=== PATIENT | male | born 1945 | race Caucasian/White ===

== ENCOUNTER 2017-10-14 20:36 | Inpatient (IN) | payer MEDICARE, OTHER ==
[~2017-10-14] VITALS: Ht 180.3 cm; Wt 76.7 kg
[2017-10-14 20:48] VITALS: BP 134/83
[2017-10-14] MEDS: SENNA 187 MG TABLET PO SCH (21:00)
[2017-10-14] MEDS ORDERED: DOCUSATE SODIUM 283 MG/5 ML MINI-ENEMA PR PRN (21:00)
[2017-10-14] MEDS ORDERED: OxyCODONE HCL 5 MG IR TABLET PO PRN ×2 (21:00)
[2017-10-14] MEDS ORDERED: ACETAMINOPHEN 325 MG TABLET PO PRN (21:00)
[2017-10-14] MEDS ORDERED: DOCUSATE SODIUM 100 MG CAPSULE PO SCH (21:00)
[2017-10-15 00:59] LABS: APPEARANCE,URINE CLEAR (CLEAR); BILIRUBIN,URINE NEGATIVE (NEGATIVE); GLUCOSE, URINE (UA) NEGATIVE (NEGATIVE); KETONES,URINE NEGATIVE (NEGATIVE); LEUKOCYTE ESTERASE ,URINE NEGATIVE (NEGATIVE); NITRATE,URINE NEGATIVE (NEGATIVE); OCCULT BLOOD,URINE LARGE (NEGATIVE); PROTEIN,URINE NEGATIVE (NEGATIVE); UROBILINOGEN,URINE 0.2 mg/dL (<=1.0)
[2017-10-15 01:13] LABS: RBC,URINE 51-100 /HPF (0-2); WBC,URINE None Seen /HPF (0-5)
[2017-10-15 01:14] LABS: BACTERIA,URINE Rare /HPF (None Seen); SQUAMOUS EPITHELIAL CELL,UR Rare /LPF (None Seen)
[2017-10-15 04:00] VITALS: BP 140/73
[2017-10-15 06:27] LABS: BASOPHILS % (AUTO) 1.2 % (0.0-2.0); EOSINOPHILS % (AUTO) 3.8 % (1.0-6.0); HEMATOCRIT 25.2 % (36-46); HEMOGLOBIN 8.7 g/dL (12.0-16.0); LYMPHOCYTES # (AUTO) 0.6 K/uL (1.0-4.8); MEAN CORPUSCULAR HEMOGLOBIN 36.4 pg (26.0-34.0); MEAN CORPUSCULAR HGB CONC 34.6 G/dL (31.0-37.0); MEAN CORPUSCULAR VOLUME 105 fL (80-100); MONOCYTES # (AUTO) 0.5 K/uL (0.1-1.0); MONOCYTES % (AUTO) 8.2 % (2.0-9.0); NEUTROPHILS # (AUTO) 4.5 K/uL (1.8-7.7); NEUTROPHILS % (AUTO) 75.8 % (40.0-70.0); PLATELET COUNT (AUTO) 290 K/uL (150-450); RED BLOOD CELL COUNT(AUTO) 2.39 MIL/uL (4.00-5.20); RED CELL DISTRIBUTION WIDTH 16.8 % (11.5-14.5)
[2017-10-15 06:45] LABS: ALANINE AMINOTRANSFERASE 22 U/L (12-78); ALBUMIN 1.7 g/dL (3.4-5.0); ALKALINE PHOSPHATASE 256 U/L (46-116); ANION GAP 9 mmol/L (8-16); ASPARTATE AMINOTRANSFERASE 31 U/L (15-37); BILIRUBIN,TOTAL 0.6 mg/dL (0.1-1.0); CALCIUM, TOTAL 7.7 mg/dL (8.8-10.5); CARBON DIOXIDE 23 mmol/L (22-29); CHLORIDE 106 mmol/L (98-107); CREATININE 0.83 mg/dL (0.60-1.30); GLOMERULAR FILTR. RATE CALC > 60 mL/min (>60); GLUCOSE,RANDOM 80 mg/dL (70-110); SODIUM SERUM 138 mmol/L (136-145); TOTAL PROTEIN, SERUM 5.3 g/dL (6.4-8.2); UREA NITROGEN, BLOOD 10 mg/dL (7-18)
[2017-10-15 07:46] VITALS: BP 145/84
[2017-10-15] MEDS: FOLIC ACID 0.4 MG TABLET PO SCH (09:13)
[2017-10-15] MEDS: ENOXAPARIN SODIUM 40 MG/0.4 ML PF SYRINGE SQ SCH (09:13)
[2017-10-15] MEDS: DOCUSATE SODIUM 250 MG CAPSULE PO SCH ×2 (09:13→20:39)
[2017-10-15] MEDS: TAMSULOSIN HCL 0.4 MG CAPSULE PO SCH (09:14)
[2017-10-15] MEDS: ASCORBIC ACID 500 MG TABLET PO SCH (09:14)
[2017-10-15] MEDS: 0.9% SODIUM CHLORIDE 10 ML SYRINGE IVP SCH ×2 (09:15→17:02)
[2017-10-15 16:09] VITALS: BP 121/74
[2017-10-15] MEDS: FERROUS SULFATE 325 MG EC TABLET PO SCH (17:02)
[2017-10-15] MEDS: GABAPENTIN 300 MG CAPSULE PO SCH ×2 (17:02→20:39)
[2017-10-15] MEDS: SENNA 187 MG TABLET PO SCH (20:39)
[2017-10-15] MEDS ORDERED: SODIUM CHLORIDE 0.9% 250 ML IV ONE (21:39)
[2017-10-15] MEDS: ERTAPENEM SODIUM 1 GM in SODIUM CHLORIDE 0.9% 50 ML IV SCH (21:52)
[2017-10-16] MEDS: 0.9% SODIUM CHLORIDE 10 ML SYRINGE IVP SCH ×4 (00:14→23:20)
[2017-10-16 00:37] VITALS: BP 146/74
[2017-10-16 07:35] VITALS: BP 138/80
[2017-10-16] MEDS: FERROUS SULFATE 325 MG EC TABLET PO SCH ×2 (08:55→16:10)
[2017-10-16] MEDS: DOCUSATE SODIUM 250 MG CAPSULE PO SCH ×2 (08:55→21:47)
[2017-10-16] MEDS: ENOXAPARIN SODIUM 40 MG/0.4 ML PF SYRINGE SQ SCH (08:56)
[2017-10-16] MEDS: FOLIC ACID 0.4 MG TABLET PO SCH (08:56)
[2017-10-16] MEDS: GABAPENTIN 300 MG CAPSULE PO SCH ×3 (08:56→21:47)
[2017-10-16] MEDS: ASCORBIC ACID 500 MG TABLET PO SCH (08:56)
[2017-10-16] MEDS: TAMSULOSIN HCL 0.4 MG CAPSULE PO SCH (08:56)
[2017-10-16 15:49] VITALS: BP 119/70
[2017-10-16] MEDS ORDERED: SODIUM CHLORIDE 0.9% 0 ML ONE (21:32)
[2017-10-16] MEDS ORDERED: SODIUM CHLORIDE 0.9% 250 ML IV ONE (21:43)
[2017-10-16] MEDS: SENNA 187 MG TABLET PO SCH (21:47)
[2017-10-16] MEDS: ERTAPENEM SODIUM 1 GM in SODIUM CHLORIDE 0.9% 50 ML IV SCH (21:47)
[2017-10-17] VITALS: BP 133/69
[2017-10-17 09:13] VITALS: BP 132/72
[2017-10-17] MEDS: FERROUS SULFATE 325 MG EC TABLET PO SCH ×2 (09:31→17:19)
[2017-10-17] MEDS: ENOXAPARIN SODIUM 40 MG/0.4 ML PF SYRINGE SQ SCH (09:31)
[2017-10-17] MEDS: MULTIVITAMINS WITH MINERALS, THERAPEUTIC TABLET PO SCH (09:31)
[2017-10-17] MEDS: FOLIC ACID 0.4 MG TABLET PO SCH (09:31)
[2017-10-17] MEDS: DOCUSATE SODIUM 250 MG CAPSULE PO SCH ×2 (09:31→21:16)
[2017-10-17] MEDS: TAMSULOSIN HCL 0.4 MG CAPSULE PO SCH (09:31)
[2017-10-17] MEDS: GABAPENTIN 300 MG CAPSULE PO SCH ×3 (09:32→21:16)
[2017-10-17] MEDS: ASCORBIC ACID 500 MG TABLET PO SCH (09:32)
[2017-10-17] MEDS: 0.9% SODIUM CHLORIDE 10 ML SYRINGE IVP SCH ×3 (14:20→22:44)
[2017-10-17 15:40] VITALS: BP 131/73
[2017-10-17] MEDS: ERTAPENEM SODIUM 1 GM in SODIUM CHLORIDE 0.9% 50 ML IV SCH (21:16)
[2017-10-17] MEDS: SENNA 187 MG TABLET PO SCH (21:16)
[2017-10-18] VITALS: BP 120/63
[2017-10-18 07:15] VITALS: BP 157/104
[2017-10-18] MEDS: DOCUSATE SODIUM 250 MG CAPSULE PO SCH ×2 (08:07→21:25)
[2017-10-18] MEDS: FOLIC ACID 0.4 MG TABLET PO SCH (08:07)
[2017-10-18] MEDS: GABAPENTIN 300 MG CAPSULE PO SCH ×3 (08:07→21:25)
[2017-10-18] MEDS: ENOXAPARIN SODIUM 40 MG/0.4 ML PF SYRINGE SQ SCH (08:07)
[2017-10-18] MEDS: TAMSULOSIN HCL 0.4 MG CAPSULE PO SCH (08:07)
[2017-10-18] MEDS: ASCORBIC ACID 500 MG TABLET PO SCH (08:08)
[2017-10-18] MEDS: MULTIVITAMINS WITH MINERALS, THERAPEUTIC TABLET PO SCH (08:08)
[2017-10-18] MEDS: 0.9% SODIUM CHLORIDE 10 ML SYRINGE IVP SCH ×3 (08:08→23:52)
[2017-10-18] MEDS: FERROUS SULFATE 325 MG EC TABLET PO SCH ×2 (08:08→17:34)
[2017-10-18] MEDS: CHOLECALCIFEROL (VIT D3) 1,000 UNITS TABLET PO SCH (09:57)
[2017-10-18 15:40] VITALS: BP 108/64
[2017-10-18] MEDS ORDERED: SODIUM CHLORIDE 0.9% 250 ML IV ONE (19:55)
[2017-10-18] MEDS: ERTAPENEM SODIUM 1 GM in SODIUM CHLORIDE 0.9% 50 ML IV SCH (21:25)
[2017-10-18] MEDS: SENNA 187 MG TABLET PO SCH (21:25)
[2017-10-19 00:14] VITALS: BP 124/67
[2017-10-19 07:53] VITALS: BP 122/76
[2017-10-19 07:58] LABS: BASOPHILS % (AUTO) 1.4 % (0.0-2.0); EOSINOPHILS % (AUTO) 5.5 % (1.0-6.0); HEMATOCRIT 25.2 % (41-53); HEMOGLOBIN 8.5 g/dL (13.5-17.5); LYMPHOCYTES # (AUTO) 0.6 K/uL (1.0-4.8); LYMPHOCYTES % (AUTO) 12.4 % (22.0-44.0); MEAN CORPUSCULAR HEMOGLOBIN 35.9 pg (26.0-34.0); MEAN CORPUSCULAR HGB CONC 33.8 G/dL (31.0-37.0); MEAN CORPUSCULAR VOLUME 106 fL (80-100); MONOCYTES # (AUTO) 0.5 K/uL (0.1-1.0); MONOCYTES % (AUTO) 10.4 % (2.0-9.0); NEUTROPHILS # (AUTO) 3.6 K/uL (1.8-7.7); NEUTROPHILS % (AUTO) 70.3 % (40.0-70.0); PLATELET COUNT (AUTO) 368 K/uL (150-450); RED BLOOD CELL COUNT(AUTO) 2.38 MIL/uL (4.50-5.90); RED CELL DISTRIBUTION WIDTH 16.5 % (11.5-14.5)
[2017-10-19] MEDS: MULTIVITAMINS WITH MINERALS, THERAPEUTIC TABLET PO SCH (08:51)
[2017-10-19] MEDS: GABAPENTIN 300 MG CAPSULE PO SCH ×3 (08:52→21:28)
[2017-10-19] MEDS: DOCUSATE SODIUM 250 MG CAPSULE PO SCH ×2 (08:52→21:28)
[2017-10-19] MEDS: ASCORBIC ACID 500 MG TABLET PO SCH (08:52)
[2017-10-19] MEDS: FERROUS SULFATE 325 MG EC TABLET PO SCH ×2 (08:52→16:57)
[2017-10-19] MEDS: FOLIC ACID 0.4 MG TABLET PO SCH (08:52)
[2017-10-19] MEDS: TAMSULOSIN HCL 0.4 MG CAPSULE PO SCH ×2 (08:53→21:28)
[2017-10-19] MEDS: CHOLECALCIFEROL (VIT D3) 1,000 UNITS TABLET PO SCH (08:53)
[2017-10-19] MEDS: ENOXAPARIN SODIUM 40 MG/0.4 ML PF SYRINGE SQ SCH (08:53)
[2017-10-19] MEDS: 0.9% SODIUM CHLORIDE 10 ML SYRINGE IVP SCH ×3 (08:54→23:45)
[2017-10-19 12:44] LABS: APPEARANCE,URINE CLEAR (CLEAR); BILIRUBIN,URINE NEGATIVE (NEGATIVE); GLUCOSE, URINE (UA) NEGATIVE (NEGATIVE); KETONES,URINE NEGATIVE (NEGATIVE); LEUKOCYTE ESTERASE ,URINE NEGATIVE (NEGATIVE); NITRATE,URINE NEGATIVE (NEGATIVE); OCCULT BLOOD,URINE NEGATIVE (NEGATIVE); PROTEIN,URINE NEGATIVE (NEGATIVE); UROBILINOGEN,URINE 0.2 mg/dL (<=1.0)
[2017-10-19 12:59] LABS: BACTERIA,URINE None Seen /HPF (None Seen); RBC,URINE None Seen /HPF (0-2); WBC,URINE None Seen /HPF (0-5)
[2017-10-19 17:58] VITALS: BP 132/76
[2017-10-19] MEDS: SENNA 187 MG TABLET PO SCH (21:28)
[2017-10-19] MEDS: ERTAPENEM SODIUM 1 GM in SODIUM CHLORIDE 0.9% 50 ML IV SCH (21:29)
[2017-10-19 23:38] VITALS: BP 136/79
[2017-10-20 07:34] VITALS: BP 133/74
[2017-10-20] MEDS: ENOXAPARIN SODIUM 40 MG/0.4 ML PF SYRINGE SQ SCH (09:58)
[2017-10-20] MEDS: FOLIC ACID 0.4 MG TABLET PO SCH (09:59)
[2017-10-20] MEDS: DOCUSATE SODIUM 250 MG CAPSULE PO SCH ×2 (09:59→20:02)
[2017-10-20] MEDS: ASCORBIC ACID 500 MG TABLET PO SCH (09:59)
[2017-10-20] MEDS: MULTIVITAMINS WITH MINERALS, THERAPEUTIC TABLET PO SCH (09:59)
[2017-10-20] MEDS: TAMSULOSIN HCL 0.4 MG CAPSULE PO SCH ×2 (09:59→20:02)
[2017-10-20] MEDS: FERROUS SULFATE 325 MG EC TABLET PO SCH (09:59)
[2017-10-20] MEDS: 0.9% SODIUM CHLORIDE 10 ML SYRINGE IVP SCH ×3 (10:00→23:36)
[2017-10-20] MEDS: GABAPENTIN 300 MG CAPSULE PO SCH ×3 (10:00→20:02)
[2017-10-20] MEDS: CHOLECALCIFEROL (VIT D3) 1,000 UNITS TABLET PO SCH ×2 (10:04→13:29)
[2017-10-20 10:22] LABS: FOLATE SERUM 12.6 ng/mL (5.4-)
[2017-10-20 15:56] VITALS: BP 122/74
[2017-10-20] MEDS: SENNA 187 MG TABLET PO SCH (20:02)
[2017-10-20] MEDS: ERTAPENEM SODIUM 1 GM in SODIUM CHLORIDE 0.9% 50 ML IV SCH (21:51)
[2017-10-21] VITALS: BP 142/73
[2017-10-21 07:58] VITALS: BP 91/52
[2017-10-21] MEDS: 0.9% SODIUM CHLORIDE 10 ML SYRINGE IVP SCH ×2 (08:55→16:00)
[2017-10-21] MEDS: ASCORBIC ACID 500 MG TABLET PO SCH (08:55)
[2017-10-21] MEDS: FOLIC ACID 0.4 MG TABLET PO SCH (08:55)
[2017-10-21] MEDS: ENOXAPARIN SODIUM 40 MG/0.4 ML PF SYRINGE SQ SCH (08:55)
[2017-10-21] MEDS: FERROUS SULFATE 325 MG EC TABLET PO SCH (08:56)
[2017-10-21] MEDS: GABAPENTIN 300 MG CAPSULE PO SCH ×3 (08:56→21:18)
[2017-10-21] MEDS: DOCUSATE SODIUM 250 MG CAPSULE PO SCH ×2 (08:56→21:18)
[2017-10-21] MEDS: CHOLECALCIFEROL (VIT D3) 1,000 UNITS TABLET PO SCH (08:56)
[2017-10-21] MEDS: TAMSULOSIN HCL 0.4 MG CAPSULE PO SCH ×2 (08:57→21:18)
[2017-10-21] MEDS: MULTIVITAMINS WITH MINERALS, THERAPEUTIC TABLET PO SCH (08:57)
[2017-10-21 09:05] VITALS: BP 99/52
[2017-10-21 10:05] VITALS: BP 91/60
[2017-10-21 10:40] VITALS: BP 114/71
[2017-10-21 15:30] VITALS: BP 112/72
[2017-10-21] MEDS: SENNA 187 MG TABLET PO SCH (21:18)
[2017-10-21] MEDS ORDERED: ASCO500 PO (23:00)
[2017-10-22 05:46] VITALS: BP 126/75
[2017-10-22] MEDS: 0.9% SODIUM CHLORIDE 10 ML SYRINGE IVP SCH ×4 (05:50→23:28)
[2017-10-22 08:23] VITALS: BP 116/68
[2017-10-22] MEDS: ASCORBIC ACID 500 MG TABLET PO SCH (08:53)
[2017-10-22] MEDS: CHOLECALCIFEROL (VIT D3) 1,000 UNITS TABLET PO SCH (08:53)
[2017-10-22] MEDS: GABAPENTIN 300 MG CAPSULE PO SCH ×3 (08:53→21:05)
[2017-10-22] MEDS: TAMSULOSIN HCL 0.4 MG CAPSULE PO SCH ×2 (08:54→21:06)
[2017-10-22] MEDS: FERROUS SULFATE 325 MG EC TABLET PO SCH (08:54)
[2017-10-22] MEDS: MULTIVITAMINS WITH MINERALS, THERAPEUTIC TABLET PO SCH (08:54)
[2017-10-22] MEDS: ENOXAPARIN SODIUM 40 MG/0.4 ML PF SYRINGE SQ SCH (08:54)
[2017-10-22] MEDS: DOCUSATE SODIUM 250 MG CAPSULE PO SCH ×2 (08:54→21:06)
[2017-10-22] MEDS: FOLIC ACID 0.4 MG TABLET PO SCH (08:55)
[2017-10-22 15:23] VITALS: BP 129/75
[2017-10-22] MEDS: SENNA 187 MG TABLET PO SCH (21:06)
[2017-10-23 00:37] VITALS: BP 113/61
[2017-10-23 07:30] VITALS: BP 92/56
[2017-10-23 07:35] VITALS: BP 77/44
[2017-10-23 08:00] VITALS: BP 120/71
[2017-10-23] MEDS: GABAPENTIN 300 MG CAPSULE PO SCH ×3 (08:27→20:19)
[2017-10-23] MEDS: TAMSULOSIN HCL 0.4 MG CAPSULE PO SCH ×2 (08:27→20:19)
[2017-10-23] MEDS: CHOLECALCIFEROL (VIT D3) 1,000 UNITS TABLET PO SCH (08:27)
[2017-10-23] MEDS: DOCUSATE SODIUM 250 MG CAPSULE PO SCH ×2 (08:27→20:19)
[2017-10-23] MEDS: FERROUS SULFATE 325 MG EC TABLET PO SCH (08:27)
[2017-10-23] MEDS: FOLIC ACID 0.4 MG TABLET PO SCH (08:27)
[2017-10-23] MEDS: MULTIVITAMINS WITH MINERALS, THERAPEUTIC TABLET PO SCH (08:27)
[2017-10-23] MEDS: ASCORBIC ACID 500 MG TABLET PO SCH (08:27)
[2017-10-23] MEDS: ENOXAPARIN SODIUM 40 MG/0.4 ML PF SYRINGE SQ SCH (08:28)
[2017-10-23] MEDS: 0.9% SODIUM CHLORIDE 10 ML SYRINGE IVP SCH ×2 (08:28→16:31)
[2017-10-23 16:04] VITALS: BP 115/77
[2017-10-23] MEDS: SENNA 187 MG TABLET PO SCH (20:19)
[2017-10-23 23:23] VITALS: BP 125/78
[2017-10-24] MEDS: 0.9% SODIUM CHLORIDE 10 ML SYRINGE IVP SCH ×3 (06:08→16:04)
[2017-10-24 07:15] VITALS: BP 121/70
[2017-10-24] MEDS: GABAPENTIN 300 MG CAPSULE PO SCH ×3 (08:23→20:14)
[2017-10-24] MEDS: DOCUSATE SODIUM 250 MG CAPSULE PO SCH ×2 (08:23→20:14)
[2017-10-24] MEDS: MULTIVITAMINS WITH MINERALS, THERAPEUTIC TABLET PO SCH (08:23)
[2017-10-24] MEDS: CHOLECALCIFEROL (VIT D3) 1,000 UNITS TABLET PO SCH (08:23)
[2017-10-24] MEDS: TAMSULOSIN HCL 0.4 MG CAPSULE PO SCH ×2 (08:23→20:13)
[2017-10-24] MEDS: ASCORBIC ACID 500 MG TABLET PO SCH (08:23)
[2017-10-24] MEDS: FERROUS SULFATE 325 MG EC TABLET PO SCH (08:24)
[2017-10-24] MEDS: ENOXAPARIN SODIUM 40 MG/0.4 ML PF SYRINGE SQ SCH (08:24)
[2017-10-24] MEDS: FOLIC ACID 0.4 MG TABLET PO SCH (08:24)
[2017-10-24 15:33] VITALS: BP 114/66
[2017-10-24 15:51] VITALS: BP 114/66
[2017-10-24] MEDS: SENNA 187 MG TABLET PO SCH (20:13)
[2017-10-25 00:16] VITALS: BP 133/73
[2017-10-25 07:28] VITALS: BP 122/69
[2017-10-25] MEDS: MULTIVITAMINS WITH MINERALS, THERAPEUTIC TABLET PO SCH (08:11)
[2017-10-25] MEDS: ENOXAPARIN SODIUM 40 MG/0.4 ML PF SYRINGE SQ SCH (08:11)
[2017-10-25] MEDS: DOCUSATE SODIUM 250 MG CAPSULE PO SCH ×2 (08:11→20:13)
[2017-10-25] MEDS: FOLIC ACID 0.4 MG TABLET PO SCH (08:11)
[2017-10-25] MEDS: GABAPENTIN 300 MG CAPSULE PO SCH ×3 (08:11→20:12)
[2017-10-25] MEDS: CHOLECALCIFEROL (VIT D3) 1,000 UNITS TABLET PO SCH (08:11)
[2017-10-25] MEDS: TAMSULOSIN HCL 0.4 MG CAPSULE PO SCH ×2 (08:11→20:13)
[2017-10-25] MEDS: FERROUS SULFATE 325 MG EC TABLET PO SCH (08:11)
[2017-10-25] MEDS: ASCORBIC ACID 500 MG TABLET PO SCH (08:11)
[2017-10-25 15:39] VITALS: BP 108/66
[2017-10-25] MEDS: SENNA 187 MG TABLET PO SCH (20:13)
[2017-10-26 00:08] VITALS: BP 125/73
[2017-10-26 07:57] VITALS: BP 127/75
[2017-10-26] MEDS: CHOLECALCIFEROL (VIT D3) 1,000 UNITS TABLET PO SCH (08:22)
[2017-10-26] MEDS: DOCUSATE SODIUM 250 MG CAPSULE PO SCH ×2 (08:23→19:57)
[2017-10-26] MEDS: ENOXAPARIN SODIUM 40 MG/0.4 ML PF SYRINGE SQ SCH (08:23)
[2017-10-26] MEDS: FERROUS SULFATE 325 MG EC TABLET PO SCH (08:23)
[2017-10-26] MEDS: FOLIC ACID 0.4 MG TABLET PO SCH (08:23)
[2017-10-26] MEDS: ASCORBIC ACID 500 MG TABLET PO SCH (08:23)
[2017-10-26] MEDS: TAMSULOSIN HCL 0.4 MG CAPSULE PO SCH ×2 (08:23→19:55)
[2017-10-26] MEDS: GABAPENTIN 300 MG CAPSULE PO SCH ×3 (08:23→19:55)
[2017-10-26] MEDS: MULTIVITAMINS WITH MINERALS, THERAPEUTIC TABLET PO SCH (08:24)
[2017-10-26 16:23] VITALS: BP 127/80
[2017-10-26] MEDS: SENNA 187 MG TABLET PO SCH (19:55)
[2017-10-26 23:02] VITALS: BP 119/73
[2017-10-27 08:00] VITALS: BP 129/72
[2017-10-27] MEDS: MULTIVITAMINS WITH MINERALS, THERAPEUTIC TABLET PO SCH (08:10)
[2017-10-27] MEDS: ASCORBIC ACID 500 MG TABLET PO SCH (08:10)
[2017-10-27] MEDS: ENOXAPARIN SODIUM 40 MG/0.4 ML PF SYRINGE SQ SCH (08:10)
[2017-10-27] MEDS: FERROUS SULFATE 325 MG EC TABLET PO SCH (08:11)
[2017-10-27] MEDS: TAMSULOSIN HCL 0.4 MG CAPSULE PO SCH ×2 (08:11→20:19)
[2017-10-27] MEDS: CHOLECALCIFEROL (VIT D3) 1,000 UNITS TABLET PO SCH (08:11)
[2017-10-27] MEDS: GABAPENTIN 300 MG CAPSULE PO SCH ×3 (08:11→20:19)
[2017-10-27] MEDS: DOCUSATE SODIUM 250 MG CAPSULE PO SCH ×2 (08:11→20:18)
[2017-10-27] MEDS: FOLIC ACID 0.4 MG TABLET PO SCH (08:11)
[2017-10-27 15:33] VITALS: BP 112/66
[2017-10-27] MEDS: SENNA 187 MG TABLET PO SCH (20:19)
[2017-10-28 03:13] VITALS: BP 113/71
[2017-10-28 06:46] LABS: BASOPHILS % (AUTO) 1.1 % (0.0-2.0); EOSINOPHILS % (AUTO) 13.3 % (1.0-6.0); HEMATOCRIT 29.8 % (41-53); HEMOGLOBIN 10.1 g/dL (13.5-17.5); LYMPHOCYTES # (AUTO) 0.9 K/uL (1.0-4.8); LYMPHOCYTES % (AUTO) 21.4 % (22.0-44.0); MEAN CORPUSCULAR HEMOGLOBIN 35.4 pg (26.0-34.0); MEAN CORPUSCULAR HGB CONC 33.8 G/dL (31.0-37.0); MEAN CORPUSCULAR VOLUME 105 fL (80-100); MONOCYTES # (AUTO) 0.5 K/uL (0.1-1.0); NEUTROPHILS # (AUTO) 2.2 K/uL (1.8-7.7); NEUTROPHILS % (AUTO) 53.2 % (40.0-70.0); PLATELET COUNT (AUTO) 312 K/uL (150-450); RED BLOOD CELL COUNT(AUTO) 2.85 MIL/uL (4.50-5.90); RED CELL DISTRIBUTION WIDTH 15.7 % (11.5-14.5)
[2017-10-28 07:00] LABS: ALANINE AMINOTRANSFERASE 22 U/L (12-78); ALBUMIN 2.3 g/dL (3.4-5.0); ALKALINE PHOSPHATASE 212 U/L (46-116); ANION GAP 6 mmol/L (8-16); ASPARTATE AMINOTRANSFERASE 26 U/L (15-37); BILIRUBIN,TOTAL 0.4 mg/dL (0.1-1.0); CALCIUM, TOTAL 9.1 mg/dL (8.8-10.5); CARBON DIOXIDE 27 mmol/L (22-29); CHLORIDE 108 mmol/L (98-107); GLOMERULAR FILTR. RATE CALC > 60 mL/min (>60); GLUCOSE,RANDOM 85 mg/dL (70-110); POTASSIUM 4.8 mmol/L (3.5-5.1); SODIUM SERUM 141 mmol/L (136-145); TOTAL PROTEIN, SERUM 6.8 g/dL (6.4-8.2); UREA NITROGEN, BLOOD 18 mg/dL (7-18)
[2017-10-28 07:52] VITALS: BP 118/74
[2017-10-28] MEDS: FOLIC ACID 0.4 MG TABLET PO SCH (08:06)
[2017-10-28] MEDS: GABAPENTIN 300 MG CAPSULE PO SCH ×3 (08:06→20:51)
[2017-10-28] MEDS: ASCORBIC ACID 500 MG TABLET PO SCH (08:06)
[2017-10-28] MEDS: MULTIVITAMINS WITH MINERALS, THERAPEUTIC TABLET PO SCH (08:06)
[2017-10-28] MEDS: TAMSULOSIN HCL 0.4 MG CAPSULE PO SCH ×2 (08:06→20:51)
[2017-10-28] MEDS: ENOXAPARIN SODIUM 40 MG/0.4 ML PF SYRINGE SQ SCH (08:06)
[2017-10-28] MEDS: CHOLECALCIFEROL (VIT D3) 1,000 UNITS TABLET PO SCH (08:07)
[2017-10-28] MEDS: FERROUS SULFATE 325 MG EC TABLET PO SCH (08:07)
[2017-10-28] MEDS: DOCUSATE SODIUM 250 MG CAPSULE PO SCH ×2 (08:07→20:51)
[2017-10-28 15:29] VITALS: BP 122/74
[2017-10-28] MEDS: SENNA 187 MG TABLET PO SCH (20:51)
[2017-10-29 05:00] VITALS: BP 126/67
[2017-10-29 07:34] VITALS: BP 126/73
[2017-10-29] MEDS: MULTIVITAMINS WITH MINERALS, THERAPEUTIC TABLET PO SCH (08:11)
[2017-10-29] MEDS: FERROUS SULFATE 325 MG EC TABLET PO SCH (08:11)
[2017-10-29] MEDS: TAMSULOSIN HCL 0.4 MG CAPSULE PO SCH ×2 (08:11→20:39)
[2017-10-29] MEDS: GABAPENTIN 300 MG CAPSULE PO SCH ×3 (08:11→20:38)
[2017-10-29] MEDS: DOCUSATE SODIUM 250 MG CAPSULE PO SCH ×2 (08:11→20:39)
[2017-10-29] MEDS: ENOXAPARIN SODIUM 40 MG/0.4 ML PF SYRINGE SQ SCH (08:11)
[2017-10-29] MEDS: ASCORBIC ACID 500 MG TABLET PO SCH (08:11)
[2017-10-29] MEDS: FOLIC ACID 0.4 MG TABLET PO SCH (08:11)
[2017-10-29] MEDS: CHOLECALCIFEROL (VIT D3) 1,000 UNITS TABLET PO SCH (08:11)
[2017-10-29 16:20] VITALS: BP 115/72
[2017-10-29 17:00] VITALS: BP 139/80
[2017-10-29] MEDS: SENNA 187 MG TABLET PO SCH (20:38)
[2017-10-30 05:00] VITALS: BP 122/70
[2017-10-30 07:37] VITALS: BP 127/77
[2017-10-30] MEDS: TAMSULOSIN HCL 0.4 MG CAPSULE PO SCH ×2 (08:55→20:03)
[2017-10-30] MEDS: ASCORBIC ACID 500 MG TABLET PO SCH (08:55)
[2017-10-30] MEDS: DOCUSATE SODIUM 250 MG CAPSULE PO SCH ×2 (08:55→20:02)
[2017-10-30] MEDS: FERROUS SULFATE 325 MG EC TABLET PO SCH (08:56)
[2017-10-30] MEDS: CHOLECALCIFEROL (VIT D3) 1,000 UNITS TABLET PO SCH (08:56)
[2017-10-30] MEDS: ENOXAPARIN SODIUM 40 MG/0.4 ML PF SYRINGE SQ SCH (08:56)
[2017-10-30] MEDS: FOLIC ACID 0.4 MG TABLET PO SCH (08:56)
[2017-10-30] MEDS: GABAPENTIN 300 MG CAPSULE PO SCH ×3 (08:56→20:03)
[2017-10-30] MEDS: MULTIVITAMINS WITH MINERALS, THERAPEUTIC TABLET PO SCH (08:56)
[2017-10-30 17:27] VITALS: BP 119/80
[2017-10-30] MEDS: SENNA 187 MG TABLET PO SCH (20:02)
[2017-10-31 05:12] VITALS: BP 133/77
[2017-10-31 07:54] VITALS: BP 134/66
[2017-10-31] MEDS: ENOXAPARIN SODIUM 40 MG/0.4 ML PF SYRINGE SQ SCH (08:05)
[2017-10-31] MEDS: GABAPENTIN 300 MG CAPSULE PO SCH ×3 (08:05→20:46)
[2017-10-31] MEDS: FOLIC ACID 0.4 MG TABLET PO SCH (08:06)
[2017-10-31] MEDS: MULTIVITAMINS WITH MINERALS, THERAPEUTIC TABLET PO SCH (08:06)
[2017-10-31] MEDS: ASCORBIC ACID 500 MG TABLET PO SCH (08:06)
[2017-10-31] MEDS: DOCUSATE SODIUM 250 MG CAPSULE PO SCH ×2 (08:06→20:46)
[2017-10-31] MEDS: CHOLECALCIFEROL (VIT D3) 1,000 UNITS TABLET PO SCH (08:06)
[2017-10-31] MEDS: TAMSULOSIN HCL 0.4 MG CAPSULE PO SCH ×2 (08:06→20:46)
[2017-10-31] MEDS: FERROUS SULFATE 325 MG EC TABLET PO SCH (08:06)
[2017-10-31 15:19] VITALS: BP 103/57
[2017-10-31] MEDS: SENNA 187 MG TABLET PO SCH (20:46)
[2017-10-31] MEDS ORDERED: DOCU250C91 PO (23:48)
[2017-10-31] MEDS ORDERED: GABA-531 PO (23:48)
[2017-10-31] MEDS ORDERED: MULT-1239 PO (23:48)
[2017-10-31] MEDS ORDERED: FOLI0.4T4 PO (23:48)
[2017-10-31] MEDS ORDERED: FERR-89 PO (23:48)
[2017-10-31] MEDS ORDERED: TAMS0.4C32 PO (23:48)
[2017-10-31] MEDS ORDERED: VITAD1000 PO (23:48)
[2017-11-01 06:04] VITALS: BP 126/77
[2017-11-01 07:29] VITALS: BP 132/84
[2017-11-01] MEDS: GABAPENTIN 300 MG CAPSULE PO SCH (08:49)
[2017-11-01] MEDS: CHOLECALCIFEROL (VIT D3) 1,000 UNITS TABLET PO SCH (08:49)
[2017-11-01] MEDS: DOCUSATE SODIUM 250 MG CAPSULE PO SCH (08:49)
[2017-11-01] MEDS: ASCORBIC ACID 500 MG TABLET PO SCH (08:49)
[2017-11-01] MEDS: FOLIC ACID 0.4 MG TABLET PO SCH (08:49)
[2017-11-01] MEDS: TAMSULOSIN HCL 0.4 MG CAPSULE PO SCH (08:50)
[2017-11-01] MEDS: MULTIVITAMINS WITH MINERALS, THERAPEUTIC TABLET PO SCH (08:50)
[2017-11-01] MEDS: FERROUS SULFATE 325 MG EC TABLET PO SCH (08:50)
== END 2017-11-01 10:00 | disposition home or self-care (01) | DRG 73 ==
LOC: 2WR 20:36 → EDSEX 20:36
DX: G62.81 Critical illness polyneuropathy (principal); E43 Unspecified severe protein-calorie malnutrition; J96.90 Respiratory failure, unspecified, unspecified whether with hypoxia or hypercapnia; J90 Pleural effusion, not elsewhere classified; C18.9 Malignant neoplasm of colon, unspecified; C78.7 Secondary malignant neoplasm of liver and intrahepatic bile duct; K56.7 Ileus, unspecified; R53.81 Other malaise; I10 Essential (primary) hypertension; C61 Malignant neoplasm of prostate; D53.9 Nutritional anemia, unspecified; N31.9 Neuromuscular dysfunction of bladder, unspecified; T45.1X5A Adverse effect of antineoplastic and immunosuppressive drugs, initial encounter; Z74.09 Other reduced mobility; G62.0 Drug-induced polyneuropathy; I95.9 Hypotension, unspecified; F32.9 Major depressive disorder, single episode, unspecified; K59.00 Constipation, unspecified; N40.1 Benign prostatic hyperplasia with lower urinary tract symptoms; R33.8 Other retention of urine; Y92.89 Other specified places as the place of occurrence of the external cause; Z90.49 Acquired absence of other specified parts of digestive tract; Z79.899 Other long term (current) drug therapy; Z68.23 Body mass index [BMI] 23.0-23.9, adult; Z80.0 Family history of malignant neoplasm of digestive organs; Z82.5 Family history of asthma and other chronic lower respiratory diseases; Z83.3 Family history of diabetes mellitus
CPT/HCPCS: 82306; 82607; 82746; 83540; 83550; 87081; 97110; 97116; 97150; 97163; 97167; 97530; 97535; 99366; J1335; J1650; J7050